=== PATIENT | female | born 1940 | race Caucasian/White ===

== ENCOUNTER → 2023-03-22 12:29 | Outpatient (REF) | payer MEDICARE, SELFPAY | LOC: HWRAD 12:29 | PROVIDERS: ATTENDING PHYSICIAN Internal Medicine | DX: R63.4 Abnormal weight loss (principal); R63.0 Anorexia; R05.9 Cough, unspecified; R19.4 Change in bowel habit | CPT/HCPCS: 71260; 74177; Q9967 ==

== ENCOUNTER → 2023-04-01 07:12 | Outpatient (REF) | payer MEDICARE, SELFPAY | LOC: RCS 07:12 | PROVIDERS: ATTENDING PHYSICIAN Internal Medicine | DX: I10 Essential (primary) hypertension (principal) | CPT/HCPCS: 93306 ==

== ENCOUNTER → 2023-05-30 06:27 | Day surgery (SDC) | payer MEDICARE, SELFPAY | LOC: GI 06:27 | PROVIDERS: ATTENDING PHYSICIAN Specialist; FAMILY PHYSICIAN Internal Medicine | DX: R93.3 Abnormal findings on diagnostic imaging of other parts of digestive tract (principal) | CPT/HCPCS: 43235 ==

== ENCOUNTER → 2023-07-07 08:12 | Outpatient (REF) | payer MEDICARE, SELFPAY | LOC: RCS 08:12 | PROVIDERS: ATTENDING PHYSICIAN Internal Medicine Cardiovascular Disease; FAMILY PHYSICIAN Internal Medicine | DX: I10 Essential (primary) hypertension (principal); I48.91 Unspecified atrial fibrillation | CPT/HCPCS: 93306 ==

== ENCOUNTER → 2023-07-21 11:15 | Outpatient (REF) | payer MEDICARE, SELFPAY | LOC: WDC 11:15 | PROVIDERS: ATTENDING PHYSICIAN Internal Medicine | DX: Z12.31 Encounter for screening mammogram for malignant neoplasm of breast (principal) | CPT/HCPCS: 77063; 77067 ==

== ENCOUNTER → 2023-10-05 08:50 | Outpatient (REF) | payer MEDICARE, SELFPAY | LOC: RAD 08:50 | PROVIDERS: ATTENDING PHYSICIAN Internal Medicine | DX: Z13.820 Encounter for screening for osteoporosis (principal); Z78.0 Asymptomatic menopausal state | CPT/HCPCS: 76536; 77080 ==

== ENCOUNTER → 2024-02-22 09:00 | Outpatient (REF) | payer MEDICARE, SELFPAY | LOC: DHSLP 09:00 | PROVIDERS: ATTENDING PHYSICIAN Internal Medicine Critical Care Medicine; FAMILY PHYSICIAN Internal Medicine | DX: G47.30 Sleep apnea, unspecified (principal); R06.83 Snoring | CPT/HCPCS: 95800 ==

== ENCOUNTER → 2024-03-11 10:40 | Outpatient (REF) | payer MEDICARE, SELFPAY | LOC: HWRAD 10:40 | PROVIDERS: ATTENDING PHYSICIAN Internal Medicine | DX: I07.1 Rheumatic tricuspid insufficiency (principal); I27.20 Pulmonary hypertension, unspecified; R91.8 Other nonspecific abnormal finding of lung field | CPT/HCPCS: 71250 ==

== ENCOUNTER → 2024-06-07 12:43 | Outpatient (REF) | payer MEDICARE, SELFPAY | LOC: HWRCS 12:43 | PROVIDERS: ATTENDING PHYSICIAN Internal Medicine | DX: I07.1 Rheumatic tricuspid insufficiency (principal); I27.20 Pulmonary hypertension, unspecified; R91.8 Other nonspecific abnormal finding of lung field | CPT/HCPCS: 93306 ==

== ENCOUNTER → 2024-07-02 14:09 | Outpatient (REF) | payer MEDICARE, SELFPAY | LOC: RAD 14:09 | PROVIDERS: ATTENDING PHYSICIAN Internal Medicine | DX: R09.89 Other specified symptoms and signs involving the circulatory and respiratory systems (principal); R05.9 Cough, unspecified | CPT/HCPCS: 71046 ==

== ENCOUNTER → 2024-07-19 10:06 | Outpatient (REF) | payer MEDICARE, SELFPAY | LOC: HWRAD 10:06 | PROVIDERS: ATTENDING PHYSICIAN Internal Medicine; FAMILY PHYSICIAN Internal Medicine | DX: R91.8 Other nonspecific abnormal finding of lung field (principal) | CPT/HCPCS: 71250 ==

== ENCOUNTER → 2024-07-26 10:58 | Outpatient (REF) | payer MEDICARE, SELFPAY | LOC: WDC 10:58 | PROVIDERS: ATTENDING PHYSICIAN Internal Medicine | DX: Z12.31 Encounter for screening mammogram for malignant neoplasm of breast (principal) | CPT/HCPCS: 77063; 77067 ==

== ENCOUNTER 2024-10-30 10:11 | Outpatient (RCR) | payer MEDICARE, SELFPAY | END 2024-10-30 23:59 | disposition home or self-care (01) | LOC: RST 10:11 | PROVIDERS: ATTENDING PHYSICIAN Otolaryngology; FAMILY PHYSICIAN Internal Medicine | DX: R49.0 Dysphonia (principal); Z98.890 Other specified postprocedural states | CPT/HCPCS: 92507; 92524 ==

== ENCOUNTER 2024-11-29 08:23 | Outpatient (RCR) | payer MEDICARE, SELFPAY | END 2024-11-29 23:59 | disposition home or self-care (01) | LOC: RST 08:23 | PROVIDERS: ATTENDING PHYSICIAN Otolaryngology; FAMILY PHYSICIAN Internal Medicine | DX: R49.0 Dysphonia (principal); Z98.890 Other specified postprocedural states | CPT/HCPCS: 92507 ==

== ENCOUNTER 2024-12-27 08:08 | Outpatient (RCR) | payer MEDICARE, SELFPAY | END 2024-12-27 23:59 | disposition home or self-care (01) | LOC: RST 08:08 | PROVIDERS: ATTENDING PHYSICIAN Otolaryngology; FAMILY PHYSICIAN Internal Medicine | DX: R49.0 Dysphonia (principal); Z98.890 Other specified postprocedural states | CPT/HCPCS: 92507 ==

== ENCOUNTER → 2025-01-15 10:41 | Outpatient (REF) | payer MEDICARE, SELFPAY | LOC: RAD 10:41 | PROVIDERS: ATTENDING PHYSICIAN Internal Medicine; FAMILY PHYSICIAN Internal Medicine | DX: R91.8 Other nonspecific abnormal finding of lung field (principal) | CPT/HCPCS: 71250 ==